=== PATIENT | male | born 1945 | race Caucasian/White ===

== ENCOUNTER → 2016-10-22 | Outpatient (CLI) | payer MEDICARE, MEDICAID ==
[~2016-10-22] MED LIST: AMLO10TA OR; ASPI325T OR; PERC5TAB8 OR; SILVADINE TOP; SOMA350T OR
--- NOTE | 2016-10-22 15:57 | REP ---
Clinical: COPD. Technique: PA and lateral. Findings: Diffuse chronic COPD/emphysematous changes and scattered interstitial disease noted. No focal consolidation, effusion, or pneumothorax. Mediastinum and cardiac silhouette normal. Skeletal structures demonstrate osteopenia and degenerative change. Impression: Diffuse advanced chronic COPD and interstitial changes.
== END ==
LOC: M CLY 14:53
PROVIDERS: ATTEND Family Medicine
DX: J44.9 Chronic obstructive pulmonary disease, unspecified (principal)
CPT/HCPCS: 71020; G0463

== ENCOUNTER → 2017-08-11 | Outpatient (CLI) | payer MEDICARE, MEDICAID | LOC: M CLY 15:15 | DX: J18.1 Lobar pneumonia, unspecified organism (principal) | CPT/HCPCS: 71046; G0463 ==